=== PATIENT | male | born 1985 | race Caucasian/White ===

== ENCOUNTER 2017-05-12 14:59 | Emergency (ER) | payer SELFPAY ==
[~2017-05-12] VITALS: Ht 172.7 cm; Wt 74.0 kg
[2017-05-12 19:02] VITALS: BP 124/74
== END 2017-05-12 19:15 | disposition home or self-care (01) ==
LOC: ER 15:29
DX: R53.1 Weakness (principal); R20.2 Paresthesia of skin; R07.9 Chest pain, unspecified; F12.10 Cannabis abuse, uncomplicated
CPT/HCPCS: 93005; 99283